=== PATIENT | male | born 1960 | race Caucasian/White ===

== ENCOUNTER 2016-11-21 16:14 | Outpatient (CLI) | payer OTHER | END 2016-11-21 16:15 | disposition home or self-care (01) | DX: M17.12 Unilateral primary osteoarthritis, left knee (principal) ==

== ENCOUNTER 2021-08-13 00:53 | Emergency (ER) | payer OTHER ==
[2021-08-13] MEDS: PROPARACAINE 0.5% OPHTH DROPS 15 ML LEFTEYE STA (01:46)
--- NOTE | 2021-08-13 01:59 | ED Physician Documentation ---
PD HPI OPHTHO - Stated complaint Stated Complaint: SOMETHING IN LT EYE - Chief complaint Chief Complaint: Heent - History obtained from History obtained from: Patient - Additional information Additional information: Patient is a 7-year-old male without any significant past medical history presenting for evaluation of left eye irritation. He feels like there is some thing in his eye.He woke up this evening with the sensation. He does sleep with a fan close to his bed. He did try and irrigate his eye. He reports his visual acuity appears normal. He has trouble opening his eye due to tearing. He does not wear contacts or glasses. Review of Systems Constitutional: denies: Fever Eyes: reports: Discharge (Clear drainage), Irritation. denies: Loss of vision, Decreased vision Nose: denies: Congestion Cardiac: denies: Chest pain / pressure Respiratory: denies: Cough GI: denies: Abdominal Pain, Vomiting : denies: Dysuria Skin: denies: Rash Musculoskeletal: denies: Back pain Neurologic: denies: Headache PD PAST MEDICAL HISTORY - Present Medications Home Medications: Ambulatory Orders Medication Instructions Recorded Confirmed Erythromycin Base [Erythromycin 1 appful LEFTEYE 5XD 7 Days #1 gm 08/13/21 Ophthalmic Ointment] - Allergies Allergies/Adverse Reactions: Allergies Allergy/AdvReac Type Severity Reaction Status Date / Time No Known Drug Allergies Allergy Verified 08/13/21 01:37 PD ED PE NORMAL - General General: Alert and oriented X 3, No acute distress, Well developed/nourished - HEENT HEENT: Atraumatic, Pharynx benign - Neck Neck: Supple, no meningeal sign - Cardiac Cardiac: RRR, Strong equal pulses - Respiratory Respiratory: No respiratory distress - Derm Derm: Warm and dry - Extremities Extremities: No edema - Neuro Neuro: Alert and oriented X 3, Normal speech - Psych Psych: Normal mood, Normal affect PD ED PE EXPANDED - Eyes Eyes: PERRL, EOMI, No eyelid FB (everted), Injected conj/sclera (Left), Corneal abrasion, Fluorescein uptake (Left eye 5 o'clock position), Anterior chambers clear, Other (Left eye IOP 20). No: Eyelid injury, Eyelid swelling, Eyelid erythema, Subconj hemorrhage, Hyphema Results - Vitals Vitals: Vital Signs - 24 hr 08/13/21 08/13/21 01:27 02:06 Temperature 36.4 C L Heart Rate 88 Respiratory 18 20 Rate Blood Pressure 188/111 H 143/96 H O2 Saturation 95 96 Oxygen O2 Source Room air PD MEDICAL DECISION MAKING - ED course ED course: Patient with irritation to his left eye. On exam no foreign body was revealed. Visual acuity intact. Intraocular pressure within normal limits.Area of fluorescein uptake seen on cornea consistent with abrasion.Patient started on antibiotic ointment and recommended to follow-up with ophthalmology. He does not have and will be given the information for Dr. Carrasquillo's clinic. Patient is aware of strict return precautions. Initial BP was elevated but significantly improved on recheck. Patient does not have a history of hypertension. Departure - Departure Disposition: 01 Home, Self Care Clinical Impression: Corneal abrasion Qualifiers: Encounter type: initial encounter Laterality: left Qualified Code(s): S05.02XA - Injury of conjunctiva and corneal abrasion without foreign body, left eye, initial encounter Condition: Stable Instructions: ED Eye Injury Corneal Abrasion Follow-Up: Carter Carrasquillo MD [Provider Admit Priv/Credential] - Prescriptions: Erythromycin Base [Erythromycin Ophthalmic Ointment] 1 appful LEFTEYE 5XD 7 Days #1 gm Comments: You were evaluated for an irritation to your left eye. It appears that you have a scratch on your left cornea. Please take the antibiotic medications as prescribed. You can use Tylenol or Motrin for pain. You do need to follow-up with an pipeline inspector. As you do not have 1 I have given you the information for Dr. Carrasquillo's office. Please call on Saturday for a follow-up appointment. If you have any changes to your vision, worsening pain or swelling or abnormal discharge or any other concerns please return to the emergency department. Discharge Date/Time: 08/13/21 02:14
[2021-08-13] MEDS: ERYTHROMYCIN OPHTH OINT 1 GM TUBE LEFTEYE STA (02:01)
[2021-08-13 02:07] VITALS: BP 143/96
== END 2021-08-13 02:14 | disposition home or self-care (01) ==
LOC: ED 00:53
DX: S05.02XA Injury of conjunctiva and corneal abrasion without foreign body, left eye, initial encounter (principal); X58.XXXA Exposure to other specified factors, initial encounter
CPT/HCPCS: 99282; J3490